=== PATIENT | male | born 1970 | race Hispanic/Latino ===

== ENCOUNTER 2023-01-15 08:30 | Day surgery (SDC) | payer BC ==
[2023-01-11 13:42] VITALS: BP 148/84; PULSE 53; RESP 17
[2023-01-11 13:44] LABS: BASOPHILS # (AUTO) 0.02 K/uL (0.00-0.20); BASOPHILS % (AUTO) 0.4 % (0.0-5.0); EOSINOPHILS # (AUTO) 0.06 K/uL (0.00-0.70); EOSINOPHILS % (AUTO) 1.2 % (0.0-8.0); HEMATOCRIT 44.6 % (42-54); IMMATURE GRANULOCYTE ABSOLUTE 0.02 K/uL (0-1); LYMPHOCYTES # (AUTO) 1.3 K/uL (1.0-4.8); LYMPHOCYTES % (AUTO) 27.1 % (21.0-51.0); MEAN CORPUSCULAR HEMOGLOBIN 29.5 pg (27.0-33.0); MEAN CORPUSCULAR HGB CONC 32.5 g/dL (32.0-36.0); MEAN CORPUSCULAR VOLUME 90.7 fL (79-99); MONOCYTES # (AUTO) 0.4 K/uL (0.1-1.0); MONOCYTES % (AUTO) 8.4 % (3.0-13.0); NEUTROPHILS # (AUTO) 3.1 K/uL (1.8-7.7); NEUTROPHILS % (AUTO) 62.5 % (40.0-77.0); PLATELET COUNT (AUTO) 183 K/uL (130-400); RED BLOOD CELL COUNT(AUTO) 4.92 MIL/uL (4.50-6.20); RED CELL DISTRIBUTION WIDTH 12.6 % (11.0-15.5); WHITE BLOOD COUNT (AUTO) 4.9 K/uL (4.8-10.8)
[~2023-01-15] VITALS: Ht 177.8 cm; Wt 84.4 kg
[2023-01-15] VITALS (17 sets, daily range): BP systolic 73–169; BP diastolic 65–93; PULSE 59–94; RESP 7–16
[2023-01-15] MEDS ORDERED: 0.9%NACL 1000ML 0 ML IV ONE (08:34)
[2023-01-15] MEDS ORDERED: CEFAZOLIN SODIUM 2 GM VIAL ONE (08:34)
[2023-01-15] MEDS ORDERED: LACTATED RINGERS 1000ML 1,000 ML IV ONE (08:35)
[2023-01-15] MEDS ORDERED: DEXAMETHASONE SOD PHOSPHATE 10MG/ML 1ML VIAL ONE (08:53)
[2023-01-15] MEDS ORDERED: SUCCINYLCHOLINE 200MG/10ML SYR ONE (08:53)
[2023-01-15] MEDS ORDERED: PROPOFOL 10 MG/ML 20ML VIAL IV ONE (08:53)
[2023-01-15] MEDS ORDERED: LIDOCAINE PF 100MG/5ML (2%) SYRINGE 5ML ONE (08:53)
[2023-01-15] MEDS ORDERED: ONDANSETRON 4MG INJ ONE ×2 (08:54→11:22)
[2023-01-15] MEDS ORDERED: GLYCOPYRROLATE 1 MG/5 ML SYRINGE ONE (08:54)
[2023-01-15] MEDS ORDERED: NEOSTIGMINE 5MG/5ML SYR IV ONE (08:54)
[2023-01-15] MEDS ORDERED: ROCURONIUM 10MG/1ML SYR 10 MG/ML ML ONE (08:54)
[2023-01-15] MEDS ORDERED: MIDAZOLAM HCL 1 MG/ML 2ML VIAL ONE (08:54)
[2023-01-15] MEDS ORDERED: FENTANYL CITRATE PF 50 MCG/1 ML 2ML VIAL ONE (08:55)
[2023-01-15] MEDS ORDERED: ROPIVACAINE 0.5% 5MG/ML 30ML IJ ONE (09:11)
[2023-01-15] MEDS ORDERED: INDOCYANINE GREEN 25 MG VIAL IJ ONE (09:12)
[2023-01-15] MEDS ORDERED: BUPIVACAINE/PF 0.5% 30ML VIAL ONE (09:16)
[2023-01-15] MEDS ORDERED: CEFAZOLIN SODIUM 1 GM VIAL IVPB ONE (09:43)
[2023-01-15] MEDS ORDERED: FENTANYL CITRATE PF 50 MCG/1 ML 5ML AMP IV ONE (09:54)
[2023-01-15] MEDS ORDERED: NALOXONE HCL 0.4 MG/1 ML ML ONE (10:54)
[2023-01-15] MEDS ORDERED: KETOROLAC 30MG VIAL (30MG/ML) ONE (11:22)
[2023-01-15] MEDS ORDERED: MEPERIDINE-PF 25 MG/ML SYG ONE (11:22)
[2023-01-15] MEDS ORDERED: HYDRALAZINE 20MG/ML VIAL ONE (11:26)
== END 2023-01-15 13:05 | disposition home or self-care (01) ==
LOC: DAH 08:30
PROVIDERS: ATTEND Surgery
DX: K40.90 Unilateral inguinal hernia, without obstruction or gangrene, not specified as recurrent (principal); D17.6 Benign lipomatous neoplasm of spermatic cord; I10 Essential (primary) hypertension; Z86.73 Personal history of transient ischemic attack (TIA), and cerebral infarction without residual deficits; Z82.3 Family history of stroke; Z98.890 Other specified postprocedural states; Z79.899 Other long term (current) drug therapy
CPT/HCPCS: 49650; 64488; S2900; 36415; 85025; A4344; J0330; J0360; J0690; J1100; J1885; J2001; J2175; J2250; J2310; J2405; J2704; J2710; J2795; J3010; J3490; J7030; J7120; A4215; A4221; A4222; A4223; A4452; A4600; A4663; A6260; C1781; J0665